=== PATIENT | male | born 1975 | race Caucasian/White ===

== ENCOUNTER 2020-05-31 14:34 | Emergency (ER) | payer OTHER, SELFPAY ==
[2020-05-31 14:41] VITALS: BP 171/84; PULSE 98; RESP 20; TEMP 36.7; O2SAT 97; BMI 29.2
--- NOTE | 2020-05-31 14:57 | CT_ITS ---
WS: [id number] CT ABDOMEN AND PELVIS NONCONTRAST HISTORY: flank pain TECHNIQUE: Imaging performed through the abdomen and pelvis. Coronal and sagittal reformats are submi tted. All CT scans at [facility] use at least one of these dose optimization techniques: automated exposure control; mA and/or kV adjustment per patient size (includes targeted exams where d ose is matched to clinical indication); or iterative reconstruction. DLP: 1041.09 mGy.cm COMPARISON: None available. Lower thorax: Lung bases are clear. Visualized heart is normal. No hiatal hernia. Liver: Moderate hepatomegaly with severe diffuse hepatic steatosis. No bile duct dilatation. Gallbladder: Contracted gallbladder with no stones identified. Pancreas: Normal size and attenuation. Normal pancreatic duct. No pancreatitis or mass. Spleen: Normal. Adrenal glands: Normal. No mass. Right kidney: Normal size kidney. Nonobstructing 5 mm calcification in the mid kidney. There is very minimal distention of the renal pelvis and ureter. Mild RIGHT ureteral stranding. There is a 4 mm kavon cification in the distal RIGHT ureter over the inferior sacrum. Left kidney: Nonobstructing 2 mm calcification in the mid kidney. Aorta: Mild atherosclerosis abdominal aorta with no aneurysm. No free fluid, intraperitoneal air or significant lymphadenopathy. GI tract: Normal appendix. No obstruction. Abdominal wall: Negative. No hernia. Pelvis: Minimally distended urinary bladder. Osseous structures: Unremarkable. CT/CT kidney stone [id number] IMPRESSION: 1. Distal 4 mm RIGHT ureteral calcification with only minimal distention of th e renal pelvis and ureter. 2. Normal appendix. 3. Moderate hepatomegaly and severe hepatic steatosis.
--- NOTE | 2020-05-31 15:03 | ED_ITS ---
HPI - Male Genitourinary General: Chief complaint: Urogenital-Male Stated complaint: suspects kidney stone Time Seen by Provider: 05/31/20 14:52 History of Present Illness: HPI Narrative: 45-year-old male presents to the emergency room with complaints of right flank pain radiating down into the groin on the right. Began suddenly half hour prior to arrival its acquiesced some now. He has had a history of renal stones states feels similar to that. Denies any fever sweats chills nausea vomiting diarrhea no dysuria urgency or frequency no hematochezia no diarrhea. Onset (ago): minute(s) Duration: intermittent Location: right flank Radiation: right inguinal region Severity: moderate Quality: aching Relieving factors: none Exacerbating factors: none Associated symptoms: Deny discharge, dysuria, fevers/chills, hematuria, nausea, rash, swelling, urinary incontinence, urinary retention, mass or vomiting Review of Systems Const: Denies: fever(s), chills, body aches, change in appetite, fatigue or malaise ENMT: Denies: throat pain, ear or mastoid pain, nasal discharge or nasal congestion Card: Denies: chest pain, edema, dyspnea on exertion or orthopnea Resp: Denies: dyspnea, productive cough or non-productive cough GI: Denies: nausea or vomiting : Denies: dysuria, urinary incontinence or hematuria Skin/Breast: Denies: rash or pruritus Physical Exam Const: COMMON NORMALS: no acute distress GENERAL APPEARANCE: cooperative and comfortable ORIENTATION/CONSCIOUSNESS: Yes awake, Yes oriented to person, Yes oriented to place and Yes oriented to time HENMT: COMMON NORMALS: normocephalic, atraumatic and hearing grossly normal bilaterally HEAD & SCALP: normocephalic and atraumatic Neck/C-Spine: COMMON NORMALS: no JVD Resp: COMMON NORMALS: normal respiratory effort, No retractions, No use of accessory muscles and clear to auscultation bilaterally AUSCULTATION: clear to auscultation bilaterally Cardio: COMMON NORMALS: no JVD, regular rate, regular rhythm and No murmurs present (Cardio) RATE: regular rate RHYTHM: regular rhythm GI: COMMON NORMALS: Soft to palpation and No hepatosplenomegaly present AUSCULTATION: Yes normoactive bowel sounds PALPATION: Yes Soft to palpation, No Tenderness to palpation present (GI), No Guarding due to palpation present (GI) and Yes No hepatosplenomegaly present Extremity: COMMON NORMALS: normal to inspection, capillary refill normal, no clubbing, cyanosis or edema, no calf tenderness and no pedal edema Neuro: SENSORIUM/ORIENTATION: Yes oriented to person, Yes oriented to place and Yes oriented to time Skin: COMMON NORMALS: no rashes or lesions noted GENERAL SKIN EXAM: no rashes or lesions noted Course Vital Signs: Vital signs: Vital Signs Temperature 98.0 F 05/31/20 14:41 Pulse Rate 98 05/31/20 17:01 Respiratory Rate 20 H 05/31/20 14:41 Blood Pressure 171/84 05/31/20 17:01 Pulse Oximetry 97 05/31/20 17:01 MDM - Male MDM Narrative: Medical decision making narrative: CT confirms nephrolithiasis will discharge home with pain medications, Flomax. Strain urine follow-up with urology next week if pain becomes uncontrollable return to the emergency room. Lab Data: Labs: Lab Results 05/31/20 05/31/20 05/31/20 Range/Units 15:02 15:07 15:07 WBC 7.9 (4.0-10.0) 10^3/ uL RBC 5.06 (4.1-5.3) 10^6/u L Hgb 15.2 (11.7-16.6) g/dL Hct 46.1 (42.0-52.0) % MCV 91.1 (80-94) fL MCH 30.0 (28.0-34.0) pg MCHC 33.0 (30.0-36.0) g/dL RDW 12.2 (12.1-15.1) % Plt Count 410 H (130-400) 10^3/c mm MPV 9.0 (7.4-10.4) fL Neut % (Auto) 62.9 % Lymph % (Auto) 26.0 % Burt % (Auto) 8.6 % Eos % (Auto) 1.4 % Baso % (Auto) 0.8 % Neut # (Auto) 4.98 (1.8-7.7) 10^3/u L Lymph # (Auto) 2.1 (0.8-4.8) 10^3/u L Burt # (Auto) 0.7 (0.2-0.9) 10^3/u L Eos # (Auto) 0.1 (0.0-0.8) 10^3/u L Baso # (Auto) 0.1 (0.0-0.1) 10^3/u L Nucleated RBC % (a uto) 0 % Nucleated RBCs # 0.0 /100WBC Sodium 137 (136-145) mmol/L Potassium 3.1 L (3.5-5.1) mmol/L Chloride 102 (98-107) mmol/L Carbon Dioxide 22 (22-29) mmol/L Anion Gap 16.1 (5-19) BUN 13 (6-20) mg/dL Creatinine 0.8 (0.7-1.2) mg/dL GFR Calculation 105.5 (90-130) mL/min Glucose 127 H (65-115) mg/dL Calculated Osmolal ity 286 (285-295) mOsm/k g Calcium 8.0 L (8.5-10.5) mg/dL Total Bilirubin 0.2 (0.15-1.2) mg/dL AST 27 (0-40) U/L ALT 45 H (0-41) U/L Alkaline Phosphata se 65 (40-130) IU/L Total Protein 6.2 L (6.6-8.7) g/dL Albumin 4.2 (3.5-5.2) g/dL Globulin 2.0 (1.3-4.6) g/dL Urine Color Yellow (Yellow) Urine Appearance Clear (CLEAR) Urine pH 5 (5-7) Ur Specific Gravit y 1.025 (1.005-1.030) Urine Protein Neg (Negative) Urine Glucose (UA) Norm (Normal) Urine Ketones Negative (Negative) Urine Blood 3+ H (Negative) Urine Nitrate Negative (Negative) Urine Bilirubin Neg (Negative) Urine Urobilinogen Norm (Negative) mg/dL Ur Leukocyte Maggy ase Negative (Negative) Urine RBC 15-25 H (0-2) /hpf Urine WBC None (0-5) /hpf Ur Squamous Epith Cells Rare (0-5) /hpf Amorphous Sediment Not Reportable Urine Bacteria Trace (NONE) /hpf Urine Yeast 1+ H /hpf Discharge Plan Discharge Patient Disposition: Home Clinical Impression: Nephrolithiasis Condition: Stable Prescriptions: New hydrocodone-acetaminophen 5-325 mg tablet 1 tab PO Q6H PRN (Reason: pain) Qty: 25 RF: 0 Zofran 4 mg tablet 4 mg PO Q6H PRN (Reason: nausea and vomiting) Qty: 20 RF: 0 tamsulosin 0.4 mg capsule 0.4 mg PO DAILY Qty: 14 RF: 0 No Action lisinopril 20 mg Tablet 20 mg PO DAILY RF: 0 levothyroxine 100 mcg Tablet 100 mcg PO DAILY RF: 0 ibuprofen 200 mg Tablet 400 mg PO ONCE PRN (Reason: Pain) RF: 0 Discharge Orders: Discharge ED (Routine); Ordered 05/31/20 Ordered By: Edin Pandey Discharge Diet: Usual diet Discharge Activity: Resume usual activity Patient Instructions: Opioid Safety Activity Restrictions/Additional Instructions: Drain urine. Follow-up with your primary care doctor within the week. Coding Level of Care Code ED Petroleum Sampler for Bianca Fwd Exam Comprehensive
[2020-05-31 15:15] VITALS: O2SAT 95
[2020-05-31 15:28] LABS: Basophils # 0.1 10^3/uL (0.0-0.1); Basophils % 0.8 %; Eosinophils # 0.1 10^3/uL (0.0-0.8); Eosinophils % 1.4 %; Hematocrit 46.1 % (42.0-52.0); Hemoglobin 15.2 g/dL (11.7-16.6); Lymphocytes # 2.1 10^3/uL (0.8-4.8); Mean Corpuscular Volume 91.1 fL (80-94); Monocytes # 0.7 10^3/uL (0.2-0.9); Monocytes % 8.6 %; Neutrophils # 4.98 10^3/uL (1.8-7.7); Neutrophils % 62.9 %; Nucleated Red Blood Cells % 0 %; Platelet Count 410 10^3/cmm (130-400); Red Blood Count 5.06 10^6/uL (4.1-5.3); Red Cell Distribution Width 12.2 % (12.1-15.1); White Blood Count 7.9 10^3/uL (4.0-10.0)
[2020-05-31 15:42] LABS: Add Urine Microscopic? YES; Bilirubin Urine Neg (Negative); Blood Urine 3+ (Negative); Glucose Urine UA Norm (Normal); Ketones Urine Negative (Negative); Leukocyte Esterase Urine Negative (Negative); Nitrate Urine Negative (Negative); Protein Urine Neg (Negative); RBC Urine 15-25 /hpf (0-2); Specific Gravity, Urine 1.025 (1.005-1.030); Squamous Epithelial Cell Urine RARE /hpf (0-5); Urine Appearance Clear (CLEAR); Urine Color Yellow (Yellow); Urobilinogen Urine Norm (Negative); pH Urine 5 (5-7)
[2020-05-31 15:43] LABS: Add Urine Culture? Yes; Bacteria Urine TRACE /hpf
[2020-05-31 15:53] LABS: Alanine Aminotransferase 45 U/L (0-41); Albumin Level 4.2 g/dL (3.5-5.2); Alkaline Phosphatase 65 IU/L (40-130); Anion Gap 16.1 (5-19); Aspartate Amino Transferase 27 U/L (0-40); Blood Urea Nitrogen 13 mg/dL (6-20); Carbon Dioxide 22 mmol/L (22-29); Chloride 102 mmol/L (98-107); Glomerular Filtration Rate 105.5 mL/min (90-130); Glucose 127 mg/dL (65-115); Osmolality Calculated 286 mOsm/kg (285-295); Potassium 3.1 mmol/L (3.5-5.1); Sodium 137 mmol/L (136-145); Total Bilirubin 0.2 mg/dL (0.15-1.2); Total Protein 6.2 g/dL (6.6-8.7)
[2020-05-31 17:01] VITALS: BP 171/84; PULSE 98; O2SAT 97
== END 2020-05-31 16:53 | disposition home or self-care (01) ==
PROVIDERS: Emergency Provider Family Medicine
DX: N20.0 Calculus of kidney (principal)
CPT/HCPCS: 74176; 80053; 81001; 85025; 87086; 99283

== ENCOUNTER 2022-10-29 14:45 | Emergency (ER) | payer OTHER, SELFPAY ==
[2022-10-29] VITALS (7 sets, daily range): BP systolic 126–134; BP diastolic 72–81; PULSE 73–77; RESP 20; TEMP 36.8; O2SAT 94–96; BMI 29.5
--- NOTE | 2022-10-29 15:36 | CTR_ITS ---
PROCEDURE INFORMATION: Exam: CT Abdomen And Pelvis Without Contrast Exam date and time: 10/29/2022 3:48 PM Age: 47 years old Clinical indication: Abdominal pain; Flank; Right; Additional info: Right flank pain TECHNIQUE: Imaging protocol: Computed tomography of the abdomen and pelvis without contrast. Axial, coronal and sagittal reformatted images were created and reviewed. Radiation optimization: All CT scans at this facility use at least one of these dose optimization techniques: automated exposure control; mA and/or kV adjustment per patient size (includes targeted exams where dose is matched to clinical indication); or iterative reconstruction. REPORTING DATA: Count of CT and Cardiac NM exams in prior 12 months: This patient has received 0 known CTs and 0 known cardiac nuclear medicine studies in the 12 months prior to the current study. COMPARISON: CT kidney stone [id number] 05/31/2020 3:33 PM RADIATION DOSE METRICS: Total DLP (mGy-cm): 572.63 FINDINGS: Lungs: Linear stranding and groundglass at the lung bases, likely due to atelectasis and/or scarring. Liver: Mild hepatomegaly. Diffuse hepatic steatosis. Gallbladder and bile ducts: No radiodense gallstones. No biliary ductal dilatation. Pancreas: Unremarkable. Spleen: Unremarkable. Adrenal glands: Normal. No mass. Kidneys and ureters: Mild right-sided hydronephrosis and perinephric stranding, secondary to a 4 mm proximal right ureteral calculus (axial image 116 and coronal image 78). Nonobstructing right renal calculus. Stomach and bowel: No bowel wall thickening. No obstruction. No pneumatosis. Appendix: Normal. Intraperitoneal space: No free fluid. No organized fluid collection. No free air. Vasculature: Minimal atherosclerotic disease. No aneurysm. Lymph nodes: No pathologically enlarged lymph nodes. Urinary bladder: Unremarkable as visualized. Reproductive: Unremarkable. Bones/joints: No acute osseous abnormality. Mild degenerative changes. Soft tissues: Unremarkable. CT/CT kidney stone [id number] IMPRESSION: 1. Mild right-sided hydronephrosis and perinephric stranding, secondary to a 4 mm proximal right ureteral calculus. 2. Additional findings, as above.
--- NOTE | 2022-10-29 16:02 | ED_ITS ---
HPI - Male Genitourinary General: Chief complaint: Urogenital-Male Stated complaint: possible kidneystones Time Seen by Provider: 10/29/22 15:58 Source: patient Mode of arrival: ambulatory History of Present Illness: 47-year-old male presents with complaints of right-sided flank pain radiating into the right groin region. Patient has a history of kidney stones states this began about 320 this morning has been progressively worsening throughout the day feels like he is when he has had a kidney stone in the past he denies any hematuria no dysuria urgency or frequency. His last stone was several years ago did not require any instrumentation to pass. Onset (ago): hour(s) Duration: constant Location: right flank Severity: moderate Quality: aching Relieving factors: none Exacerbating factors: none Associated symptoms: Deny discharge, dysuria, fevers/chills, hematuria, nausea, rash, swelling, urinary incontinence, urinary retention, mass or vomiting Review of Systems Const: Denies: fever(s), chills, body aches, change in appetite, fatigue or malaise ENMT: Denies: throat pain, ear or mastoid pain, nasal discharge or nasal congestion Card: Denies: chest pain, edema, dyspnea on exertion or orthopnea Resp: Denies: dyspnea, productive cough or non-productive cough GI: Denies: abdominal pain, nausea or vomiting : Denies: dysuria, urinary incontinence or hematuria Skin/Breast: Denies: rash or pruritus Physical Exam Const: COMMON NORMALS: no acute distress GENERAL APPEARANCE: cooperative and comfortable ORIENTATION/CONSCIOUSNESS: Yes awake, Yes oriented to person, Yes oriented to place and Yes oriented to time HENMT: COMMON NORMALS: normocephalic, atraumatic and hearing grossly normal bilaterally HEAD & SCALP: normocephalic and atraumatic Resp: COMMON NORMALS: normal respiratory effort, No retractions, No use of accessory muscles and clear to auscultation bilaterally AUSCULTATION: clear to auscultation bilaterally Cardio: COMMON NORMALS: regular rate, regular rhythm and No murmurs present (Cardio) RATE: regular rate RHYTHM: regular rhythm GI: COMMON NORMALS: Soft to palpation and No hepatosplenomegaly present AUSCULTATION: Yes normoactive bowel sounds PALPATION: Yes Soft to palpation, No Tenderness to palpation present (GI), No Guarding due to palpation present (GI) and Yes No hepatosplenomegaly present : COMMON NORMALS: Yes no CVA tenderness BLADDER/KIDNEY EXAM: Yes no CVA tenderness Back/Pelvis: COMMON NORMALS: no CVA tenderness Extremity: COMMON NORMALS: normal to inspection, capillary refill normal, no clubbing, cyanosis or edema, no calf tenderness and no pedal edema Neuro: SENSORIUM/ORIENTATION: Yes oriented to person, Yes oriented to place and Yes oriented to time Skin: COMMON NORMALS: no rashes or lesions noted GENERAL SKIN EXAM: no rashes or lesions noted Course Vital Signs: Vital signs: Vital Signs Temperature 98.3 F 10/29/22 14:53 Pulse Rate 77 10/29/22 16:30 Respiratory Rate 20 H 10/29/22 17:52 Blood Pressure 134/72 10/29/22 16:30 Pulse Oximetry 95 10/29/22 18:00 Oxygen Delivery Me thod Room Air 10/29/22 14:53 MDM - Male Medical Decision Making Right nephrolithiasis on CT. White count is elevated and he does have 5-10 white blood cells per high-power field. We will start him on oral antibiotics as well as pain medications and an emetics and tamsulosin alone. Return if has fever. Strain urine. Will make follow-up arrangements for urology. Medical Records I reviewed the patient's medical records. Lab Data I reviewed the patient's lab results. 10/29/22 15:46 10/29/22 15:46 Radiology Impressions Abdomen/Pelvis CT 10/29/22 15:36 IMPRESSION: 1. Mild right-sided hydronephrosis and perinephric stranding, secondary to a 4 mm proximal right ureteral calculus. 2. Additional findings, as above. Laboratory Results WBC 15.42 10^3/uL (3.29-11.43) H 10/29/22 15:46 RBC 5.05 10^6/uL (3.85-5.65) 10/29/22 15:46 Hgb 15.00 g/dL (11.27-16.99) 10/29/22 15:46 Hct 44.9 % (37-53) 10/29/22 15:46 MCV 88.9 fl (82-101) 10/29/22 15:46 MCH 29.7 pg (27-33) 10/29/22 15:46 MCHC 33.4 g/dL (30-55) 10/29/22 15:46 RDW 12.2 % (12.1-15.1) 10/29/22 15:46 Plt Count 416 10^3/cmm (157-399) H 10/29/22 15:46 MPV 9.1 fL (7.4-10.4) 10/29/22 15:46 Neut % (Auto) 89.6 % 10/29/22 15:46 Lymph % (Auto) 5.7 % 10/29/22 15:46 Thomas % (Auto) 4.0 % 10/29/22 15:46 Eos % (Auto) 0.0 % 10/29/22 15:46 Baso % (Auto) 0.2 % 10/29/22 15:46 Neut # (Auto) 13.82 10^3/uL (1.8-7.7) H 10/29/22 15:46 Lymph # (Auto) 0.9 10^3/uL (0.8-4.8) 10/29/22 15:46 Thomas # (Auto) 0.6 10^3/uL (0.2-0.9) 10/29/22 15:46 Eos # (Auto) 0.0 10^3/uL (0.0-0.8) 10/29/22 15:46 Baso # (Auto) 0.0 10^3/uL (0.0-0.1) 10/29/22 15:46 Nucleated RBC % (auto) 0 % 10/29/22 15:46 Nucleated RBCs # 0.0 /100WBC 10/29/22 15:46 Sodium 135 mmol/L (136-145) L 10/29/22 15:46 Potassium 4.6 mmol/L (3.5-5.1) 10/29/22 15:46 Chloride 99 mmol/L (98-107) 10/29/22 15:46 Carbon Dioxide 23 mmol/L (22-29) 10/29/22 15:46 Anion Gap 17.6 (5-19) 10/29/22 15:46 BUN 18 mg/dL (6-20) 10/29/22 15:46 Creatinine 1.2 mg/dL (0.7-1.2) 10/29/22 15:46 GFR Calculation 65.5 mL/min (90-130) L 10/29/22 15:46 Glucose 127 mg/dL (65-115) H 10/29/22 15:46 Calculated Osmolality 283 mOsm/kg (285-295) L 10/29/22 15:46 Calcium 9.0 mg/dL (8.5-10.5) 10/29/22 15:46 Total Bilirubin 0.6 mg/dL (0.15-1.2) 10/29/22 15:46 AST 32 U/L (0-40) 10/29/22 15:46 ALT 54 U/L (0-41) H 10/29/22 15:46 Alkaline Phosphatase 68 U/L (40-130) 10/29/22 15:46 Total Protein 7.5 g/dL (6.6-8.7) 10/29/22 15:46 Albumin 4.8 g/dL (3.5-5.2) 10/29/22 15:46 Globulin 2.7 g/dL (1.3-4.6) 10/29/22 15:46 Urine Color Yellow (Yellow) 10/29/22 16:10 Urine Appearance Clear (CLEAR) 10/29/22 16:10 Urine pH 5 (5-7) 10/29/22 16:10 Ur Specific [place] 1.020 (1.005-1.030) 10/29/22 16:10 Urine Protein Neg (Negative) 10/29/22 16:10 Urine Glucose (UA) Norm (Normal) 10/29/22 16:10 Urine Ketones 1+ (Negative) H 10/29/22 16:10 Urine Blood 3+ (Negative) H 10/29/22 16:10 Urine Nitrate Negative (Negative) 10/29/22 16:10 Urine Bilirubin Neg (Negative) 10/29/22 16:10 Urine Urobilinogen Norm mg/dL (Negative) 10/29/22 16:10 Ur Leukocyte Esterase Trace (Negative) H 10/29/22 16:10 Urine RBC 15-25 /hpf (0-2) H 10/29/22 16:10 Urine WBC 5-10 /hpf (0-5) H 10/29/22 16:10 Ur Squamous Epith Cells 0-4 /hpf (0-5) H 10/29/22 16:10 Amorphous Sediment Not Reportable 10/29/22 16:10 Urine Bacteria Trace /hpf (NONE) 10/29/22 16:10 Discharge Plan Discharge Patient Disposition: Home Clinical Impression: Right nephrolithiasis Condition: Stable Prescriptions: New tamsulosin 0.4 mg capsule 0.4 mg PO DAILY Qty: 14 0RF promethazine 25 mg tablet 25 mg PO Q6H PRN (Reason: nausea and vomiting) Qty: 20 0RF hydrocodone-acetaminophen 5-325 mg tablet 1 tab PO Q6H PRN (Reason: pain) Qty: 20 0RF Cipro 500 mg tablet 500 mg PO BID Qty: 20 0RF No Action lisinopril 20 mg Tablet 20 mg PO DAILY levothyroxine 100 mcg Tablet 100 mcg PO DAILY ibuprofen 200 mg Tablet 400 mg PO QID PRN (Reason: Pain) Discharge Orders: Discharge ED (Routine); Ordered 10/29/22 Ordered By: Edin Pandey Referrals: En Briones MD [Primary Care Provider] - Patient Instructions: Kidney Stones (ED), How to Strain Your Urine (ED), Opioid Safety, Pain Management Coding Level of Care Code ED Roll Up Machine Operator for Bianca Arreaga
[2022-10-29 16:10] LABS: Basophils % 0.2 %; Hematocrit 44.9 % (37-53); Lymphocytes # 0.9 10^3/uL (0.8-4.8); Lymphocytes % 5.7 %; Mean Corpuscular HGB Conc 33.4 g/dL (30-55); Mean Corpuscular Hemoglobin 29.7 pg (27-33); Mean Corpuscular Volume 88.9 fl (82-101); Mean Platelet Volume 9.1 fL (7.4-10.4); Monocytes # 0.6 10^3/uL (0.2-0.9); Neutrophils # 13.82 10^3/uL (1.8-7.7); Neutrophils % 89.6 %; Nucleated Red Blood Cells % 0 %; Platelet Count 416 10^3/cmm (157-399); Red Blood Count 5.05 10^6/uL (3.85-5.65); Red Cell Distribution Width 12.2 % (12.1-15.1); White Blood Count 15.42 10^3/uL (3.29-11.43)
[2022-10-29 16:24] LABS: Alanine Aminotransferase 54 U/L (0-41); Albumin Level 4.8 g/dL (3.5-5.2); Alkaline Phosphatase 68 U/L (40-130); Anion Gap 17.6 (5-19); Aspartate Amino Transferase 32 U/L (0-40); Blood Urea Nitrogen 18 mg/dL (6-20); Carbon Dioxide 23 mmol/L (22-29); Chloride 99 mmol/L (98-107); Globulin 2.7 g/dL (1.3-4.6); Glomerular Filtration Rate 65.5 mL/min (90-130); Glucose 127 mg/dL (65-115); Osmolality Calculated 283 mOsm/kg (285-295); Potassium 4.6 mmol/L (3.5-5.1); Sodium 135 mmol/L (136-145); Total Bilirubin 0.6 mg/dL (0.15-1.2); Total Protein 7.5 g/dL (6.6-8.7)
[2022-10-29 16:28] LABS: Add Urine Microscopic? YES; Bilirubin Urine Neg (Negative); Blood Urine 3+ (Negative); Glucose Urine UA Norm (Normal); Ketones Urine 1+ (Negative); Leukocyte Esterase Urine Trace (Negative); Nitrate Urine Negative (Negative); Protein Urine Neg (Negative); Urine Appearance Clear (CLEAR); Urine Color Yellow (Yellow); Urobilinogen Urine Norm (Negative); pH Urine 5 (5-7)
[2022-10-29 16:29] LABS: RBC Urine 15-25 /hpf (0-2)
[2022-10-29 16:30] LABS: Add Urine Culture? Yes; Bacteria Urine TRACE /hpf; Squamous Epithelial Cell Urine 0-4 /hpf (0-5)
[2022-10-29] MEDS: morphine 4 mg/mL SDV 1 mL IVP ×2 (16:51→17:52)
[2022-10-29] MEDS: morphine 4 mg/mL SDV 1 mL 2 MG IVP (16:55)
[2022-10-29] MEDS: ondansetron 2 mg/ML SDV 2 mL 4 MG IVP (17:25)
--- NOTE | 2022-10-30 09:16 | DCPLANNER ---
Addendum entered by Soumya Wells 11/06/22 14:40: authorization manager called to confirm that [facility] had received patients information. authorization manager was told that clinic had received patients information, it will be reviewed, and clinic will call patient with appointment information. Original Note: authorization manager had message to schedule a follow up appointment for patient with urology. authorization manager spoke with patient to confirm where patient would like the referral sent. Patient stated that he would like the referral sent to [facility] in [place], caser up faxed patients information to the urology clinic, it will be reviewed, clinic will call patient with appointment information.
== END 2022-10-29 18:01 | disposition home or self-care (01) ==
PROVIDERS: Emergency Medicine; Emergency Provider Family Medicine; PCP Family Medicine
DX: N13.2 Hydronephrosis with renal and ureteral calculous obstruction (principal)
CPT/HCPCS: 36415; 74176; 80053; 81001; 85025; 87086; 96374; 96375; 96376; 99284; J2270; J2405

== ENCOUNTER → 2023-02-13 12:05 | Outpatient (BNVA) | payer OTHER, SELFPAY | PROVIDERS: PCP Family Medicine; Visit Provider Nurse Practitioner Family | DX: R79.89 Other specified abnormal findings of blood chemistry (principal); Z13.220 Encounter for screening for lipoid disorders; Z12.5 Encounter for screening for malignant neoplasm of prostate | CPT/HCPCS: 80053; 80061; 84443; 85025; G0103 ==